=== PATIENT | male | born 2000 | race Caucasian/White ===

== ENCOUNTER 2019-04-01 20:20 | Emergency (ER) | payer MEDICAID ==
[~2019-04-01] VITALS: Ht 172.7 cm; Wt 63.5 kg
[2019-04-01 20:40] VITALS: Ht 172.7 cm; Wt 63.5 kg
[2019-04-01 22:21] VITALS: BP 130/75
== END 2019-04-01 22:21 | disposition home or self-care (01) ==
LOC: ED 20:20
DX: J40 Bronchitis, not specified as acute or chronic (principal)